=== PATIENT | male | born 1965 | race African-American/Black ===

== ENCOUNTER 2016-09-05 11:18 | Inpatient (IN) | payer OTHER ==
[2016-09-05 15:09] VITALS: BMI 34.9
--- NOTE | 2016-09-05 17:50 | HP ---
CIWA Score - CIWA Score Nausea/Vomitin-Mild Nausea/No Vomiting Muscle Tremors: 4-Moderate,w/Arms Extend Anxiety: 4-Mod. Anxious/Guarded Agitation: 4-Moderately Restless Paroxysmal Sweats: 1-Minimal Palms Moist Orientation: 0-Oriented Tacttile Disturbances: 0-None Auditory Disturbances: 0-None Visual Disturbances: 0-None Headache: 1-Very Mild CIWA-Ar Total Score: 15 Admission ROS BHS - HPI Chief Complaint: withdrawal sx Allergies/Adverse Reactions: Allergies Allergy/AdvReac Type Severity Reaction Status Date / Time No Known Drug Allergies Allergy Verified 09/05/16 17:58 cheese AdvReac Intermediate Vomiting Verified 09/05/16 17:58 lactose AdvReac Intermediate Vomiting Verified 09/05/16 17:58 History of Present Illness: 51 years old male with long history of alcohol marijuana nicotine dependence, has hypertension hyperlipidemia gerd and depression is admitted to detox Exam Limitations: No Limitations - Ebola screening Have you traveled outside of the country in the last 21 days: No Have you had contact with anyone from an Ebola affected area: No Have you been sick,other than usual withdrawal symptoms: No Do you have a fever: No - Review of Systems Constitutional: Chills, Changes in sleep, Weight Stable EENT: reports: No Symptoms Reported Respiratory: reports: No Symptoms reported Cardiac: reports: No Symptoms Reported : reports: No Symptoms Reported Musculoskeletal: reports: Back Pain, Joint Pain (right leg), Muscle Pain, Neck Pain Integumentary: reports: No Symptoms Reported Neuro: reports: Tremors Endocrine: reports: No Symptoms Reported Hematology: reports: No Symptoms Reported Psychiatric: reports: Judgement Intact, Orientated x3, Depressed Other Systems: Reviewed and Negative Patient History - Patient Medical History Hx Anemia: No Hx Asthma: No Hx Chronic Obstructive Pulmonary Disease (COPD): No Hx Cancer: No Hx Cardiac Disorders: No Hx Congestive Heart Failure: No Hx Hypertension: Yes Hx Hypercholesterolemia: Yes Hx Pacemaker: No HX Cerebrovascular Accident: No Hx Seizures: No Hx Dementia: No Hx Diabetes: No Hx Gastrointestinal Disorders: No Hx Liver Disease: No Hx Genitourinary Disorders: No Hx Sexually Transmitted Disorders: No Hx Renal Disease (ESRD): No Hx Thyroid Disease: No Hx Human Immunodeficiency Virus (HIV): No Hx Hepatitis C: No Hx Depression: Yes Hx Suicide Attempt: No Hx Bipolar Disorder: No Hx Schizophrenia: No - Patient Surgical History Past Surgical History: No Hx Neurologic Surgery: No Hx Cataract Extraction: No Hx Cardiac Surgery: No Hx Lung Surgery: No Hx Breast Surgery: No Hx Breast Biopsy: No Hx Abdominal Surgery: No Hx Appendectomy: No Hx Cholecystectomy: No Hx Genitourinary Surgery: No Hx Orthopedic Surgery: No - PPD History Previous Implant?: Yes Documented Results: Negative w/o proof Implanted On Prior [facility] Admission?: No PPD to be Administered?: Yes - Smoking Cessation Smoking history: Current every day smoker Have you smoked in the past 12 months: Yes Aproximately how many cigarettes per day: 10 Cigars Per Day: 0 Hx Chewing Tobacco Use: No Initiated information on smoking cessation: Yes 'Breaking Loose' booklet given: 09/05/16 - Substance & Tx. History Hx Alcohol Use: Yes Hx Substance Use: Yes Substance Use Type: Alcohol, Marijuana Hx Substance Use Treatment: Yes - Substances Abused Alcohol Route: Oral Frequency: Daily Amount used: LIQUOR- 3 PINTS, BEER- 1 SIX PACK Age of first use: 15 Date of Last Use: 09/05/16 Cocaine Route: Inhalation Frequency: Daily Amount used: 3 BAGS Age of first use: 19 Date of Last Use: 09/02/16 Marijuana/Hashish Route: Smoking Frequency: Daily Amount used: 6 BLUNTS Age of first use: 12 Date of Last Use: 09/04/16 Family Disease History - Family Disease History Family Disease History: [place]: Mother (), Respiratory: Brother, Other: Father () Admission Physical Exam BHS - Vital Signs Vital Signs: Vital Signs - 24 hr 09/05/16 15:08 Temperature 97.6 F Pulse Rate 94 H Respiratory 20 Rate Blood Pressure 139/88 - Physical General Appearance: Yes: Appropriately Dressed, Mild Distress, Obese, Tremorous , Irritable, Sweating, Anxious HEENTM: Yes: Hearing grossly Normal, Normal ENT Inspection, Normocephalic, Normal Voice Respiratory: Yes: Chest Non-Tender, Lungs Clear, Normal Breath Sounds, No Respiratory Distress, No Accessory Muscle Use Neck: Yes: Supple, Trachea in good position Breast: Yes: Breasts Symetrical Cardiology: Yes: Regular Rhythm, S1, S2, Tachycardia Abdominal: Yes: Non Tender, Soft Genitourinary: Yes: Within Normal Limits Back: Yes: Normal Inspection Musculoskeletal: Yes: full range of Motion, Gait Steady, Back pain, Muscle Pain (RIGHT LEG) Extremities: Yes: Normal Inspection, Normal Range of Motion, Non-Tender, Tremors Neurological: Yes: Fully Oriented, Alert, Motor Strength 5/5, Normal Response, Depressed Affect Integumentary: Yes: Warm Lymphatic: Yes: Within Normal Limits Cleared for Admission [facility] - Detox or Rehab [facility] Level of Care: Medically Managed Detox Regimen/Protocol: Librium [facility] Breath Alcohol Content Breath Alcohol Content: 0 Urine Drug Screen - Results Drug Screen Negative: No Urine Drug Screen Results: THC-Marijuana
[2016-09-05] MEDS ORDERED: chlordiazePOXIDE HCL 25 MG CAPSULE PO PRN (17:52)
[2016-09-05] MEDS ORDERED: MENTHOL/PHENOL 1 EACH UD MM PRN (17:52)
[2016-09-05] MEDS ORDERED: guaiFENesin/D-METHORPHAN HB 10 ML UNIT-DOSE CUPS PO PRN (17:52)
[2016-09-05] MEDS ORDERED: MAGNESIUM CITRATE 300 ML BOTTLE PO PRN (17:52)
[2016-09-05] MEDS ORDERED: P-EPHED 60MG/TRIPROLIDI 2.5MG TABLET PO PRN (17:52)
[2016-09-05] MEDS ORDERED: LOPERAMIDE HCL 2 MG CAPSULE PO PRN (17:52)
[2016-09-05] MEDS ORDERED: MAG HYDROX/AL HYDROX/SIMETH 30 ML UNIT-DOSE CUP PO PRN (17:52)
[2016-09-05] MEDS ORDERED: MAGNESIUM HYDROX 2400MG/30ML ORAL SUSPENSION 30 ML CUP PO PRN (17:52)
[2016-09-05] MEDS ORDERED: hydrOXYzine PAMOATE 50 MG CAPSULE (FP) PO PRN (17:52)
[2016-09-05] MEDS ORDERED: NAPROXEN 500 MG TABLET (FP) PO PRN (17:56)
[2016-09-05] MEDS ORDERED: NIFEdipine E.R. 30 MG TABLET (FP) PO SCH (22:00)
[2016-09-05] MEDS: THIAMINE HCL 100 MG TABLET (FP) PO SCH (22:15)
[2016-09-05] MEDS: NIFEdipine E.R. 30 MG TABLET (FP) PO SCH (22:15)
[2016-09-05] MEDS: ATORVASTATIN CA 10 MG TABLET (FP) PO SCH (22:15)
[2016-09-05] MEDS: chlordiazePOXIDE HCL 25 MG CAPSULE PO SCH (22:15)
[2016-09-05] MEDS: RANITIDINE HCL 150 MG TABLET (FP) PO SCH (22:15)
[2016-09-05] MEDS: diphenhydrAMINE HCL 50 MG CAPSULE PO PRN (22:16)
[2016-09-05] MEDS: cloNIDine HCL 0.1 MG TABLET PO PRN (22:16)
[2016-09-05 23:51] LABS: URINE APPEARANCE CLEAR; URINE BILIRUBIN NEGATIVE (NEGATIVE); URINE BLOOD NEGATIVE (NEGATIVE); URINE COLOR YELLOW; URINE GLUCOSE (UA) NEGATIVE (NEGATIVE); URINE KETONE NEGATIVE (NEGATIVE); URINE LEUK ESTERASE NEGATIVE (NEGATIVE); URINE NITRITE NEGATIVE (NEGATIVE); URINE PROTEIN NEGATIVE (NEGATIVE); URINE UROBILINOGEN NEGATIVE E.U./dl (0.2-1.0)
[2016-09-06] MEDS: chlordiazePOXIDE HCL 25 MG CAPSULE PO SCH ×4 (06:08→22:07)
[2016-09-06 10:08] LABS: MCH 30.6 pg (25.7-33.7); MCHC 33.5 g/dl (32.0-35.9); MEAN CELL VOLUME 91.5 fl (80-96); PLATELET COUNT 190 K/MM3 (134-434); RDW 13.9 % (11.9-15.9); WHITE BLOOD COUNT 7.3 K/mm3 (4.0-10.0)
[2016-09-06] MEDS: NICOTINE 14 MG/24 HOURS TOPICAL PATCH TD SCH (10:18)
[2016-09-06] MEDS: RANITIDINE HCL 150 MG TABLET (FP) PO SCH ×2 (10:18→22:07)
[2016-09-06] MEDS: ASPIRIN 81 MG CHEWABLE TABLETS PO SCH (10:18)
[2016-09-06] MEDS: PRENATAL VITAMINS W/ FOLIC ACID TABLET (FP) PO SCH (10:18)
[2016-09-06] MEDS: NICOTINE POLACRILEX 2 MG GUM BC PRN ×2 (10:18→18:01)
[2016-09-06 10:26] LABS: ALBUMIN 3.8 g/dl (3.4-5.0); BILIRUBIN,TOTAL 0.1 mg/dL (0.2-1.0); CALCIUM 8.7 mg/dL (8.5-10.1); COCKROFT - GAULT 110.02; CREATININE 1.3 mg/dL (0.7-1.3); TOT PROT 7.3 g/dl (6.4-8.2)
--- NOTE | 2016-09-06 12:20 | EKG ---
Test Reason : Blood Pressure : / mmHG Vent. Rate : 081 BPM Atrial Rate : 081 BPM P-R Int : 162 ms QRS Dur : 108 ms QT Int : 372 ms P-R-T Axes : 059 041 048 degrees QTc Int : 432 ms NORMAL SINUS RHYTHM NONSPECIFIC T WAVE ABNORMALITY ABNORMAL ECG NO PREVIOUS ECGS AVAILABLE Confirmed by MD JOHN, ALFREDA ([id number]) on 09/06/2016 12:20:01 PM Referred By: Confirmed By:ALFREDA LOPEZ MD
[2016-09-06] MEDS: cloNIDine HCL 0.1 MG TABLET PO PRN (13:18)
--- NOTE | 2016-09-06 17:16 | CONSULT ---
[facility] Psychiatric Consult - Data Date of interview: 09/06/16 Admission source: [facility] Identifying data: First admission to [facility] for this 51 y/o AA male seeking detox treatment for alcohol,marijuana (K2),cocaine and nicotine dependence.Patient is single (common-law),a father of one,domiciled,unemployed and supported on Public Assistance. Substance Abuse History: - Smoking Cessation. Smoking history: Current every day smoker. Have you smoked in the past 12 months: Yes. Aproximately how many cigarettes per day: 10. Cigars Per Day: 0. Hx Chewing Tobacco Use: No. Initiated information on smoking cessation: Yes. 'Breaking Loose' booklet given : 09/05/16. - Substance & Tx. History. Hx Alcohol Use: Yes. Hx Substance Use : Yes. Substance Use Type: Alcohol, Marijuana. Hx Substance Use Treatment: Yes. - Substances Abused. Alcohol. Route: Oral. Frequency: Daily. Amount used: LIQUOR- 3 PINTS, BEER- 1 SIX PACK. Age of first use: 15. Date of Last Use: 09/05/16. Cocaine. Route: Inhalation. Frequency: Daily. Amount used: 3 BAGS. Age of first use: 19. Date of Last Use: 09/02/16. Marijuana/ Hashish. Route: Smoking. Frequency: Daily. Amount used: 6 BLUNTS. Age of first use: 12. Date of Last Use: 09/04/16. Confirmed by patient. Medical History: Obesity,GERD,hypertension,hypercholesterolemia,lower back pain and dyslipidemia. Psychiatric History: Patient admits to two psychiatric hospitalizations.Known to [facility].Diagnosed with MDD and Bipolar Disorder.Mr Sorto sees a psychiatrist at [facility].He indicates that he is not on psychotropic medications.Denies history of suicide attempts. Physical/Sexual Abuse/Trauma History: Patient denies. Additional Comment: Urine Drug Screen Results: THC-Marijuana.Noted. Mental Status Exam - Mental Status Exam Alert and Oriented to: Time, Place, Person Cognitive Function: Good Patient Appearance: Well Groomed (obese;noted evidence of a nevus on right side of face) Mood: Hopeful Affect: Appropriate, Normal Range Patient Behavior: Fatigued, Appropriate, Cooperative Speech Pattern: Clear, Appropriate Voice Loudness: Normal Thought Process: Goal Oriented Thought Disorder: Not Present Hallucinations: Denies Suicidal Ideation: Denies Homicidal Ideation: Denies Insight/Judgement: Poor Sleep: Well Appetite: Good Muscle strength/Tone: Normal Gait/Station: Normal Psychiatric Findings - Problem List ([place] 1, 2,3) (1) Alcohol dependence with uncomplicated withdrawal Current Visit: Yes Status: Acute (2) Cannabis dependence, uncomplicated Current Visit: Yes Status: Acute (3) Nicotine dependence Current Visit: Yes Status: Acute (4) Substance induced mood disorder Current Visit: Yes Status: Acute (5) Accelerated hypertension Current Visit: Yes Status: Chronic (6) GERD (gastroesophageal reflux disease) Current Visit: Yes Status: Chronic (7) Hyperlipidemia Current Visit: Yes Status: Chronic - Initial Treatment Plan Initial Treatment Plan: Psychoeducation.Detoxification.Observation.Noted scripts for topiramate,olanzapine,trazodone in section of pharmacy claims as recently as 08/04 and 09/03.Presented to the patient." I don't want to get back on these things ." Mr Sorto refused psychotropic medications other than detox agents.
[2016-09-06] MEDS: ACETAMINOPHEN 325 MG TABLET (FP) PO PRN (18:00)
--- NOTE | 2016-09-06 18:23 | PN ---
[facility] CIWA - CIWA Score Nausea/Vomitin-No Nausea/No Vomiting Muscle Tremors: 3 Anxiety: 2 Agitation: 3 Paroxysmal Sweats: 3 Orientation: 0-Oriented Tacttile Disturbances: 3-Moderate Itch/Numb/Burn Auditory Disturbances: 2-Mild Harshness/Frighten Visual Disturbances: 0-None Headache: 0-None Present CIWA-Ar Total Score: 16 BHS Progress Note (SOAP) Subjective: Body Aches, Sweating, H/A, Tremors. Objective: PT. A & O X 3, OBSERVED AMBULATING ON UNIT. PT. DENIES CHEST PAIN. 09/06/16 18:20 Vital Signs Temperature 97.2 F L 09/06/16 13:07 Pulse Rate 92 H 09/06/16 13:07 Respiratory Rate 20 09/06/16 13:07 Blood Pressure 153/96 09/06/16 13:07 O2 Sat by Pulse Oximetry (%) Laboratory Tests 09/05/16 09/06/16 09/06/16 23:40 06:00 06:00 WBC 7.3 RBC 4.27 Hgb 13.1 Hct 39.1 MCV 91.5 MCHC 33.5 RDW 13.9 Plt Count 190 MPV 10.0 Sodium 143 Potassium 4.1 Chloride 107 Carbon Dioxide 27 Anion Gap 9 BUN 20 H Creatinine 1.3 Creat Clearance w eGFR 57.97 Random Glucose 106 Calcium 8.7 Total Bilirubin 0.1 L AST 23 ALT 34 Alkaline Phosphatase 92 Total Protein 7.3 Albumin 3.8 Urine Color Yellow Urine Appearance Clear Urine pH 5.0 Ur Specific [place] 1.025 Urine Protein Negative Urine Glucose (UA) Negative Urine Ketones Negative Urine Blood Negative Urine Nitrite Negative Urine Bilirubin Negative Urine Urobilinogen Negative Ur Leukocyte Esterase Negative RPR Titer 09/06/16 06:00 WBC RBC Hgb Hct MCV MCHC RDW Plt Count MPV Sodium Potassium Chloride Carbon Dioxide Anion Gap BUN Creatinine Creat Clearance w eGFR Random Glucose Calcium Total Bilirubin AST ALT Alkaline Phosphatase Total Protein Albumin Urine Color Urine Appearance Urine pH Ur Specific [place] Urine Protein Urine Glucose (UA) Urine Ketones Urine Blood Urine Nitrite Urine Bilirubin Urine Urobilinogen Ur Leukocyte Esterase RPR Titer Nonreactive LABS NOTED. 09/06/16 18:22 09/06/16 18:22 Assessment: 09/06/16 18:20 WITHDRAWAL SYMPTOMS. Plan: CONTINUE DETOX. CONTINUE TO MONITOR BP.
[2016-09-06] MEDS: THIAMINE HCL 100 MG TABLET (FP) PO SCH (22:06)
[2016-09-06] MEDS: ATORVASTATIN CA 10 MG TABLET (FP) PO SCH (22:07)
[2016-09-06] MEDS: NIFEdipine E.R. 30 MG TABLET (FP) PO SCH (22:07)
[2016-09-06] MEDS: diphenhydrAMINE HCL 50 MG CAPSULE PO PRN (22:07)
[2016-09-07] MEDS: chlordiazePOXIDE HCL 25 MG CAPSULE PO SCH ×3 (05:51→17:27)
[2016-09-07] MEDS: RANITIDINE HCL 150 MG TABLET (FP) PO SCH ×2 (10:15→22:42)
[2016-09-07] MEDS: ASPIRIN 81 MG CHEWABLE TABLETS PO SCH (10:15)
[2016-09-07] MEDS: PRENATAL VITAMINS W/ FOLIC ACID TABLET (FP) PO SCH (10:15)
[2016-09-07] MEDS: cloNIDine HCL 0.1 MG TABLET PO PRN ×2 (10:16→22:42)
[2016-09-07] MEDS: NICOTINE POLACRILEX 2 MG GUM BC PRN ×2 (10:16→17:29)
[2016-09-07] MEDS: NICOTINE 14 MG/24 HOURS TOPICAL PATCH TD SCH (10:16)
[2016-09-07] MEDS ORDERED: cloNIDine HCL 0.1 MG TABLET PO ONE (15:13)
--- NOTE | 2016-09-07 16:21 | PN ---
S CIWA - CIWA Score Nausea/Vomitin Muscle Tremors: 4-Moderate,w/Arms Extend Anxiety: 4-Mod. Anxious/Guarded Agitation: 4-Moderately Restless Paroxysmal Sweats: No Perspiration Orientation: 0-Oriented Tacttile Disturbances: 1-Very Mild Itch/Numbness Auditory Disturbances: 0-None Visual Disturbances: 0-None Headache: 2-Mild CIWA-Ar Total Score: 18 BHS Progress Note (SOAP) Subjective: Anxious, sweating, tremor, headache, interrupted sleep Objective: 09/07/16 16:20 Last Vital Signs Temp Pulse Resp BP Pulse Ox 97.3 F L 54 L 18 163/100 09/07/16 13:41 09/07/16 15:05 09/07/16 13:41 09/07/16 15:05 Laboratory Tests 09/05/16 09/06/16 09/06/16 23:40 06:00 06:00 WBC 7.3 RBC 4.27 Hgb 13.1 Hct 39.1 MCV 91.5 MCHC 33.5 RDW 13.9 Plt Count 190 MPV 10.0 Sodium 143 Potassium 4.1 Chloride 107 Carbon Dioxide 27 Anion Gap 9 BUN 20 H Creatinine 1.3 Creat Clearance w eGFR 57.97 Random Glucose 106 Calcium 8.7 Total Bilirubin 0.1 L AST 23 ALT 34 Alkaline Phosphatase 92 Total Protein 7.3 Albumin 3.8 Urine Color Yellow Urine Appearance Clear Urine pH 5.0 Ur Specific [place] 1.025 Urine Protein Negative Urine Glucose (UA) Negative Urine Ketones Negative Urine Blood Negative Urine Nitrite Negative Urine Bilirubin Negative Urine Urobilinogen Negative Ur Leukocyte Esterase Negative RPR Titer 09/06/16 06:00 WBC RBC Hgb Hct MCV MCHC RDW Plt Count MPV Sodium Potassium Chloride Carbon Dioxide Anion Gap BUN Creatinine Creat Clearance w eGFR Random Glucose Calcium Total Bilirubin AST ALT Alkaline Phosphatase Total Protein Albumin Urine Color Urine Appearance Urine pH Ur Specific [place] Urine Protein Urine Glucose (UA) Urine Ketones Urine Blood Urine Nitrite Urine Bilirubin Urine Urobilinogen Ur Leukocyte Esterase RPR Titer Nonreactive Labs noted Assessment: 09/07/16 16:20 Withdrawal symptoms Plan: Continue detox
[2016-09-07] MEDS: ATORVASTATIN CA 10 MG TABLET (FP) PO SCH (22:42)
[2016-09-07] MEDS: THIAMINE HCL 100 MG TABLET (FP) PO SCH (22:42)
[2016-09-07] MEDS: chlordiazePOXIDE 5 MG CAPSULE PO SCH (22:43)
[2016-09-07] MEDS: NIFEdipine E.R. 30 MG TABLET (FP) PO SCH (22:43)
[2016-09-08] MEDS: chlordiazePOXIDE 5 MG CAPSULE PO SCH ×3 (05:55→17:24)
[2016-09-08] MEDS: cloNIDine HCL 0.1 MG TABLET PO PRN (05:55)
[2016-09-08] MEDS: RANITIDINE HCL 150 MG TABLET (FP) PO SCH ×2 (10:08→22:01)
[2016-09-08] MEDS: ASPIRIN 81 MG CHEWABLE TABLETS PO SCH (10:08)
[2016-09-08] MEDS: PRENATAL VITAMINS W/ FOLIC ACID TABLET (FP) PO SCH (10:08)
[2016-09-08] MEDS: NICOTINE 14 MG/24 HOURS TOPICAL PATCH TD SCH (10:09)
--- NOTE | 2016-09-08 12:04 | PN ---
BHS Progress Note (SOAP) Subjective: Lower Back Ache, Sweating, H/A, Body Aches. Objective: PT. A & O X 3, OBSERVED AMBULATING ON UNIT. PT. DENIES CHEST PAIN AND DIZZINESS. 09/08/16 12:01 Vital Signs Temperature 97.7 F 09/08/16 09:51 Pulse Rate 101 H 09/08/16 09:51 Respiratory Rate 20 09/08/16 09:51 Blood Pressure 130/89 09/08/16 09:51 O2 Sat by Pulse Oximetry (%) Laboratory Tests 09/05/16 09/06/16 09/06/16 23:40 06:00 06:00 WBC 7.3 RBC 4.27 Hgb 13.1 Hct 39.1 MCV 91.5 MCHC 33.5 RDW 13.9 Plt Count 190 MPV 10.0 Sodium 143 Potassium 4.1 Chloride 107 Carbon Dioxide 27 Anion Gap 9 BUN 20 H Creatinine 1.3 Creat Clearance w eGFR 57.97 Random Glucose 106 Calcium 8.7 Total Bilirubin 0.1 L AST 23 ALT 34 Alkaline Phosphatase 92 Total Protein 7.3 Albumin 3.8 Urine Color Yellow Urine Appearance Clear Urine pH 5.0 Ur Specific [place] 1.025 Urine Protein Negative Urine Glucose (UA) Negative Urine Ketones Negative Urine Blood Negative Urine Nitrite Negative Urine Bilirubin Negative Urine Urobilinogen Negative Ur Leukocyte Esterase Negative RPR Titer 09/06/16 06:00 WBC RBC Hgb Hct MCV MCHC RDW Plt Count MPV Sodium Potassium Chloride Carbon Dioxide Anion Gap BUN Creatinine Creat Clearance w eGFR Random Glucose Calcium Total Bilirubin AST ALT Alkaline Phosphatase Total Protein Albumin Urine Color Urine Appearance Urine pH Ur Specific [place] Urine Protein Urine Glucose (UA) Urine Ketones Urine Blood Urine Nitrite Urine Bilirubin Urine Urobilinogen Ur Leukocyte Esterase RPR Titer Nonreactive LABS NOTED. Assessment: 09/08/16 12:02 WITHDRAWAL SYMPTOMS. Plan: CONTINUE DETOX. ADVISED PATIENT TO FOLLOW-UP WITH [facility] [employer] [facility]IE[facility] AFTER DISCHARGE FROM DETOX FOR GENERAL MEDICAL ASSESSMENT AND FOR HISTORY OF HYPERTENSION.
[2016-09-08] MEDS: ACETAMINOPHEN 325 MG TABLET (FP) PO PRN (17:43)
[2016-09-08] MEDS: chlordiazePOXIDE HCL 10 MG CAPSULE PO SCH (22:01)
[2016-09-08] MEDS: ATORVASTATIN CA 10 MG TABLET (FP) PO SCH (22:02)
[2016-09-08] MEDS: NIFEdipine E.R. 30 MG TABLET (FP) PO SCH (22:02)
[2016-09-08] MEDS: THIAMINE HCL 100 MG TABLET (FP) PO SCH (22:02)
[2016-09-08] MEDS: diphenhydrAMINE HCL 50 MG CAPSULE PO PRN (22:03)
[2016-09-08] MEDS: NICOTINE POLACRILEX 2 MG GUM BC PRN (22:05)
[2016-09-09] MEDS: cloNIDine HCL 0.1 MG TABLET PO PRN (06:05)
[2016-09-09] MEDS: chlordiazePOXIDE HCL 10 MG CAPSULE PO SCH ×2 (06:05→10:56)
[2016-09-09] MEDS: ACETAMINOPHEN 325 MG TABLET (FP) PO PRN (06:06)
[2016-09-09] MEDS: NICOTINE 14 MG/24 HOURS TOPICAL PATCH TD SCH (10:56)
[2016-09-09] MEDS: PRENATAL VITAMINS W/ FOLIC ACID TABLET (FP) PO SCH (10:56)
[2016-09-09] MEDS: ASPIRIN 81 MG CHEWABLE TABLETS PO SCH (10:56)
[2016-09-09] MEDS: RANITIDINE HCL 150 MG TABLET (FP) PO SCH (10:56)
--- NOTE | 2016-09-09 11:48 | DS ---
[facility] Detox Discharge Summary Admission Date: 09/05/16 Discharge Date: 09/09/16 - History Present History: Alcohol Dependence, Cannabis Dependence Pertinent Past History: HTN GERD - Physical Exam Results Vital Signs: Vital Signs Temperature 98.5 F 09/09/16 09:53 Pulse Rate 112 H 09/09/16 09:53 Respiratory Rate 19 09/09/16 09:53 Blood Pressure 143/96 09/09/16 09:53 O2 Sat by Pulse Oximetry (%) Pertinent Admission Physical Exam Findings: Withdrawal sx. Laboratory Last Values WBC 7.3 K/mm3 (4.0-10.0) 09/06/16 06:00 RBC 4.27 M/mm3 (4.00-5.60) 09/06/16 06:00 Hgb 13.1 GM/dL (11.7-16.9) 09/06/16 06:00 Hct 39.1 % (35.4-49) 09/06/16 06:00 MCV 91.5 fl (80-96) 09/06/16 06:00 MCHC 33.5 g/dl (32.0-35.9) 09/06/16 06:00 RDW 13.9 % (11.9-15.9) 09/06/16 06:00 Plt Count 190 K/MM3 (134-434) 09/06/16 06:00 MPV 10.0 fl (7.5-11.1) 09/06/16 06:00 Sodium 143 mmol/L (136-145) 09/06/16 06:00 Potassium 4.1 mmol/L (3.5-5.1) 09/06/16 06:00 Chloride 107 mmol/L (98-107) 09/06/16 06:00 Carbon Dioxide 27 mmol/L (21-32) 09/06/16 06:00 Anion Gap 9 (8-16) 09/06/16 06:00 BUN 20 mg/dL (7-18) H 09/06/16 06:00 Creatinine 1.3 mg/dL (0.7-1.3) 09/06/16 06:00 Creat Clearance w eGFR 57.97 (>60) 09/06/16 06:00 Random Glucose 106 mg/dL (74-106) 09/06/16 06:00 Calcium 8.7 mg/dL (8.5-10.1) 09/06/16 06:00 Total Bilirubin 0.1 mg/dL (0.2-1.0) L 09/06/16 06:00 AST 23 U/L (15-37) 09/06/16 06:00 ALT 34 U/L (12-78) 09/06/16 06:00 Alkaline Phosphatase 92 U/L (45-117) 09/06/16 06:00 Total Protein 7.3 g/dl (6.4-8.2) 09/06/16 06:00 Albumin 3.8 g/dl (3.4-5.0) 09/06/16 06:00 Urine Color Yellow 09/05/16 23:40 Urine Appearance Clear 09/05/16 23:40 Urine pH 5.0 (5.0-8.0) 09/05/16 23:40 Ur Specific [place] 1.025 (1.005-1.025) 09/05/16 23:40 Urine Protein Negative (NEGATIVE) 09/05/16 23:40 Urine Glucose (UA) Negative (NEGATIVE) 09/05/16 23:40 Urine Ketones Negative (NEGATIVE) 09/05/16 23:40 Urine Blood Negative (NEGATIVE) 09/05/16 23:40 Urine Nitrite Negative (NEGATIVE) 09/05/16 23:40 Urine Bilirubin Negative (NEGATIVE) 09/05/16 23:40 Urine Urobilinogen Negative E.U./dl (0.2-1.0) 09/05/16 23:40 Ur Leukocyte Esterase Negative (NEGATIVE) 09/05/16 23:40 RPR Titer Nonreactive (NONREACTIVE) 09/06/16 06:00 labs noted - Treatment Hospital Course: Detox Protocol Followed, Detoxed Safely, Responded well, Discharged Condition Good, Rehab Referral Accepted Patient has Accepted a Rehab Referral to: [facility] - Medication Discharge Medications: Ambulatory Orders Aspirin [ASA -] 81 mg PO DAILY 09/05/16 Nifedipine [Procardia Capsule -] 30 mg PO HS 09/05/16 Simvastatin [Zocor -] 5 mg PO HS 09/05/16 - Diagnosis (1) Alcohol dependence with uncomplicated withdrawal Current Visit: Yes Status: Acute (2) Cannabis dependence, uncomplicated Current Visit: Yes Status: Acute (3) Nicotine dependence Current Visit: Yes Status: Acute Qualifiers: Nicotine product type: cigarettes Substance use status: uncomplicated Qualified Code(s): F17.210 - Nicotine dependence, cigarettes, uncomplicated (4) Substance induced mood disorder Current Visit: Yes Status: Acute (5) GERD (gastroesophageal reflux disease) Current Visit: Yes Status: Chronic (6) Hyperlipidemia Current Visit: Yes Status: Chronic (7) HTN (hypertension) Current Visit: Yes Status: Acute Qualifiers: Hypertension type: essential hypertension Qualified Code(s): I10 - Essential (primary) hypertension - AMA Did Patient Leave Against Medical Advice: No
[2016-09-09 13:30] VITALS: BP 138/86; PULSE 98; TEMP 97.2
== END 2016-09-09 15:22 | disposition other institution (70) | DRG 775 ==
LOC: YASAS 11:18 → Y3N 17:37
PROVIDERS: ADMIT Internal Medicine; ATTEND Internal Medicine
PROC: HZ2ZZZZ Detoxification Services for Substance Abuse Treatment (ICD-10-PCS; principal; 2016-09-05)
DX: F10.230 Alcohol dependence with withdrawal, uncomplicated (principal); F12.20 Cannabis dependence, uncomplicated; F17.210 Nicotine dependence, cigarettes, uncomplicated; F19.24 Other psychoactive substance dependence with psychoactive substance-induced mood disorder; K21.9 Gastro-esophageal reflux disease without esophagitis; E78.5 Hyperlipidemia, unspecified; I10 Essential (primary) hypertension; Z68.35 Body mass index [BMI] 35.0-35.9, adult; R00.0 Tachycardia, unspecified
CPT/HCPCS: 36415; 80053; 81003; 85027; 86593; 93005; 93010

== ENCOUNTER 2016-09-09 15:29 | Inpatient (IN) | payer OTHER ==
[2016-09-09] MEDS ORDERED: P-EPHED 60MG/TRIPROLIDI 2.5MG TABLET PO PRN (17:04)
[2016-09-09] MEDS ORDERED: MAGNESIUM HYDROX 2400MG/30ML ORAL SUSPENSION 30 ML CUP PO PRN (17:04)
[2016-09-09] MEDS ORDERED: MAGNESIUM CITRATE 300 ML BOTTLE PO PRN (17:04)
[2016-09-09] MEDS ORDERED: diphenhydrAMINE HCL 50 MG CAPSULE PO PRN (17:04)
[2016-09-09] MEDS ORDERED: LOPERAMIDE HCL 2 MG CAPSULE PO PRN (17:04)
[2016-09-09] MEDS ORDERED: MAG HYDROX/AL HYDROX/SIMETH 30 ML UNIT-DOSE CUP PO PRN (17:04)
[2016-09-09] MEDS ORDERED: MENTHOL/PHENOL 1 EACH UD MM PRN (17:04)
[2016-09-09] MEDS ORDERED: guaiFENesin/D-METHORPHAN HB 10 ML UNIT-DOSE CUPS PO PRN (17:04)
[2016-09-09] MEDS ORDERED: IBUPROFEN 400 MG TABLET (FP) PO PRN (17:04)
--- NOTE | 2016-09-09 17:04 | HP ---
[facility] Rehab Assess/Revision - Admission History Admitted to Rehab from: [facility] Date of Admission to Rehab: 09/09/16 - Vital signs Vital Signs: Vital Signs Period Temp Pulse Resp BP Sys/Barboza Pulse Ox Last 24 Hr 97.4 F 97 20 152/105 - Findings Detox History & Physical reviewed: Yes Concur with findings: Yes Comments/Additional Findings: transferred from detox to rehab admission as per protocol
[2016-09-09] MEDS: NIFEdipine E.R. 30 MG TABLET (FP) PO SCH (17:53)
[2016-09-09] MEDS: NICOTINE POLACRILEX 2 MG GUM BUC PRN (17:54)
[2016-09-09] MEDS: THIAMINE HCL 100 MG TABLET (FP) PO SCH (23:12)
--- NOTE | 2016-09-10 07:55 | HP ---
Psychiatrist Admission - Data Date of interview: 09/10/16 Admission source: [facility] Identifying data: This is the first [facility] admission for this 51 years old Black male in a common-law relationship, father of a 17 years old son , unemployed on public assistance, domiciled living with Medical History: Significant for HTN, Hyperlipidemia, GERD, Back pain and Obesity. Smokes 10 cigarettes daily Psychiatric History: Reports that his psychiaric exposure began in childhood. Claims he was told that he was hyperactive and for that reason he was admitted to [facility] for a year and was also at [facility]. 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 More recently, in April 2016, he was admitted to [facility] due to suicidal attempt by trying to jump off the building. Reports that he was not working at the time and his did not have anything to do with him. He stayed at [facility] for almost 2 weeks and treated with medication. Following discharge, he was referred to [facility] for aftercare. He told automobile and property underwriter that he sees a psychiatrist there and he is prescribed medication which he has not been taking and does want to take while here. He does not even know the name of the medication. At present, reports doing and sleeping well. Pharmacy search shows he filled Rx for Zyprexa 10 mg/day on 06/26/16, Topiramate 50 mg on 08/21/16 & Trazadone 50 mg on 08/25/16 Physical/Sexual Abuse/Trauma History: Denies emotional, physical or sexual abuse as well as DV relationship Additional Comment: Reports history of multiple arrests including 2 felony conviction. Denies being on parole/prbation at present Vital Signs: Vital Signs - 24 hr 09/09/16 09/09/16 09/09/16 15:43 17:17 20:15 Temperature 97.4 F L Pulse Rate 97 H 96 H 102 H Respiratory 20 Rate Blood Pressure 152/105 159/96 145/82 09/10/16 09/10/16 00:30 03:30 Temperature Pulse Rate Respiratory 20 20 Rate Blood Pressure Allergies/Adverse Reactions: Allergies Allergy/AdvReac Type Severity Reaction Status Date / Time No Known Drug Allergies Allergy Verified 09/09/16 19:19 cheese AdvReac Intermediate Vomiting Verified 09/09/16 19:19 lactose AdvReac Intermediate Vomiting Verified 09/09/16 19:19 Date of last physical exam: 09/05/16 Concur with the findings of this exam: Yes - Substance Abuse/Tx History Hx Alcohol Use: Yes Hx Substance Use: Yes Substance Use Type: Alcohol (Started drinking alcohol at age 15, consumes 4-5 pints of liquor daily. Last drink on 09/05/16), Cocaine (Started using cocaine at age 19, consumes $50-100 worth daily. Last used on 09/02/16), Marijuana ( Started smoking marijuana at age 12, consumes $50 worth daily. Last Somked on ) Hx Substance Use Treatment: Yes (recent inpt detox @ [facility]) - Admission Criteria Previous failed treatment: Yes Poor recovery environment: Yes Comorbidities: Yes Lacks judgement: Yes Mental Status Exam - Mental Status Exam Alert and Oriented to: Time, Place, Person Cognitive Function: Fair Patient Appearance: Well Groomed Mood: Hopeful, Euthymic Patient Behavior: Cooperative Speech Pattern: Clear Voice Loudness: Normal Thought Process: Intact, Goal Oriented Thought Disorder: Not Present Hallucinations: Denies Suicidal Ideation: Denies Homicidal Ideation: Denies Insight/Judgement: Fair Sleep: Fair Appetite: Good Muscle strength/Tone: Normal Gait/Station: Normal Psychiatric Findings - Problem List ([place] 1, 2,3) (1) Alcohol dependence with uncomplicated withdrawal Current Visit: No Status: Acute (2) Cocaine dependence Current Visit: Yes Status: Acute (3) Cannabis dependence, uncomplicated Current Visit: No Status: Acute (4) Nicotine dependence Current Visit: No Status: Acute Qualifiers: Nicotine product type: cigarettes Substance use status: uncomplicated Qualified Code(s): F17.210 - Nicotine dependence, cigarettes, uncomplicated (5) Depressive disorder Current Visit: Yes Status: Acute (6) Substance induced mood disorder Current Visit: No Status: Ruled-out (7) HTN (hypertension) Current Visit: No Status: Acute Qualifiers: Hypertension type: essential hypertension Qualified Code(s): I10 - Essential (primary) hypertension (8) Hyperlipidemia Current Visit: No Status: Chronic - Initial Treatment Plan Initial Treatment Plan: Monitor progress
[2016-09-10] MEDS: PRENATAL VITAMINS W/ FOLIC ACID TABLET (FP) PO SCH (10:40)
[2016-09-10] MEDS: NIFEdipine E.R. 30 MG TABLET (FP) PO SCH (10:40)
[2016-09-10] MEDS: ACETAMINOPHEN 325 MG TABLET (FP) PO PRN (10:41)
[2016-09-10] MEDS: ASPIRIN 81 MG CHEWABLE TABLETS PO SCH (10:41)
[2016-09-10 11:54] LABS: HIV 1 & 2 AB NEGATIVE; HIV 1 AGp24 NEGATIVE
[2016-09-10] MEDS: THIAMINE HCL 100 MG TABLET (FP) PO SCH (22:45)
[2016-09-11] MEDS: NICOTINE POLACRILEX 2 MG GUM BUC PRN (06:59)
[2016-09-11] MEDS: ASPIRIN 81 MG CHEWABLE TABLETS PO SCH (10:08)
[2016-09-11] MEDS: NICOTINE 14 MG/24 HOURS TOPICAL PATCH TD PRN (10:08)
[2016-09-11] MEDS: NIFEdipine E.R. 30 MG TABLET (FP) PO SCH (10:08)
[2016-09-11] MEDS: PRENATAL VITAMINS W/ FOLIC ACID TABLET (FP) PO SCH (10:08)
[2016-09-11] MEDS: ACETAMINOPHEN 325 MG TABLET (FP) PO PRN (12:04)
[2016-09-11] MEDS: THIAMINE HCL 100 MG TABLET (FP) PO SCH (21:52)
[2016-09-12] MEDS: ASPIRIN 81 MG CHEWABLE TABLETS PO SCH (11:07)
[2016-09-12] MEDS: HYDROCHLOROTHIAZIDE 25 MG TABLET (FP) PO SCH (11:08)
[2016-09-12] MEDS: NIFEdipine E.R. 30 MG TABLET (FP) PO SCH (11:08)
[2016-09-12] MEDS: PRENATAL VITAMINS W/ FOLIC ACID TABLET (FP) PO SCH (11:08)
[2016-09-12] MEDS: NICOTINE 14 MG/24 HOURS TOPICAL PATCH TD PRN (11:09)
[2016-09-12] MEDS: THIAMINE HCL 100 MG TABLET (FP) PO SCH (22:28)
[2016-09-13] MEDS: ACETAMINOPHEN 325 MG TABLET (FP) PO PRN (08:41)
[2016-09-13] MEDS: PRENATAL VITAMINS W/ FOLIC ACID TABLET (FP) PO SCH (09:49)
[2016-09-13] MEDS: ASPIRIN 81 MG CHEWABLE TABLETS PO SCH (09:49)
[2016-09-13] MEDS: NICOTINE 14 MG/24 HOURS TOPICAL PATCH TD PRN (09:50)
[2016-09-13] MEDS: NIFEdipine E.R. 30 MG TABLET (FP) PO SCH (09:50)
[2016-09-13] MEDS: HYDROCHLOROTHIAZIDE 25 MG TABLET (FP) PO SCH (09:50)
[2016-09-13] MEDS: THIAMINE HCL 100 MG TABLET (FP) PO SCH (21:41)
[2016-09-14] MEDS: NICOTINE POLACRILEX 2 MG GUM BUC PRN ×2 (06:22→17:02)
[2016-09-14] MEDS: ASPIRIN 81 MG CHEWABLE TABLETS PO SCH (10:00)
[2016-09-14] MEDS: PRENATAL VITAMINS W/ FOLIC ACID TABLET (FP) PO SCH (10:00)
[2016-09-14] MEDS: HYDROCHLOROTHIAZIDE 25 MG TABLET (FP) PO SCH (10:01)
[2016-09-14] MEDS: NIFEdipine E.R. 30 MG TABLET (FP) PO SCH (10:01)
[2016-09-14] MEDS: NICOTINE 14 MG/24 HOURS TOPICAL PATCH TD PRN (10:01)
[2016-09-14] MEDS: THIAMINE HCL 100 MG TABLET (FP) PO SCH (22:22)
[2016-09-15] MEDS: ASPIRIN 81 MG CHEWABLE TABLETS PO SCH (10:12)
[2016-09-15] MEDS: NIFEdipine E.R. 30 MG TABLET (FP) PO SCH (10:12)
[2016-09-15] MEDS: HYDROCHLOROTHIAZIDE 25 MG TABLET (FP) PO SCH (10:12)
[2016-09-15] MEDS: PRENATAL VITAMINS W/ FOLIC ACID TABLET (FP) PO SCH (10:12)
[2016-09-15] MEDS: NICOTINE POLACRILEX 2 MG GUM BUC PRN (10:13)
[2016-09-15] MEDS: NICOTINE 14 MG/24 HOURS TOPICAL PATCH TD PRN (10:13)
[2016-09-15] MEDS: THIAMINE HCL 100 MG TABLET (FP) PO SCH (21:33)
[2016-09-16] MEDS: PRENATAL VITAMINS W/ FOLIC ACID TABLET (FP) PO SCH (10:11)
[2016-09-16] MEDS: HYDROCHLOROTHIAZIDE 25 MG TABLET (FP) PO SCH (10:11)
[2016-09-16] MEDS: NIFEdipine E.R. 30 MG TABLET (FP) PO SCH (10:11)
[2016-09-16] MEDS: ASPIRIN 81 MG CHEWABLE TABLETS PO SCH (10:11)
[2016-09-16] MEDS: NICOTINE 14 MG/24 HOURS TOPICAL PATCH TD PRN (10:12)
[2016-09-16] MEDS: NICOTINE POLACRILEX 2 MG GUM BUC PRN (10:13)
[2016-09-16] MEDS: THIAMINE HCL 100 MG TABLET (FP) PO SCH (22:50)
[2016-09-17] MEDS: ASPIRIN 81 MG CHEWABLE TABLETS PO SCH (10:06)
[2016-09-17] MEDS: NIFEdipine E.R. 30 MG TABLET (FP) PO SCH (10:06)
[2016-09-17] MEDS: HYDROCHLOROTHIAZIDE 25 MG TABLET (FP) PO SCH (10:06)
[2016-09-17] MEDS: PRENATAL VITAMINS W/ FOLIC ACID TABLET (FP) PO SCH (10:06)
[2016-09-17] MEDS: NICOTINE 14 MG/24 HOURS TOPICAL PATCH TD PRN (10:07)
[2016-09-17] MEDS: NICOTINE POLACRILEX 2 MG GUM BUC PRN (10:07)
[2016-09-17] MEDS: THIAMINE HCL 100 MG TABLET (FP) PO SCH (21:32)
[2016-09-18] MEDS: ASPIRIN 81 MG CHEWABLE TABLETS PO SCH (09:46)
[2016-09-18] MEDS: NIFEdipine E.R. 30 MG TABLET (FP) PO SCH (09:46)
[2016-09-18] MEDS: HYDROCHLOROTHIAZIDE 25 MG TABLET (FP) PO SCH (09:46)
[2016-09-18] MEDS: PRENATAL VITAMINS W/ FOLIC ACID TABLET (FP) PO SCH (09:47)
[2016-09-18] MEDS: NICOTINE 14 MG/24 HOURS TOPICAL PATCH TD PRN (09:47)
[2016-09-18] MEDS: CYCLOBENZAPRINE HCL 10 MG TABLET (FP) PO PRN (09:49)
[2016-09-18] MEDS: NICOTINE POLACRILEX 2 MG GUM BUC PRN (09:49)
[2016-09-18] MEDS: THIAMINE HCL 100 MG TABLET (FP) PO SCH (21:37)
[2016-09-19] MEDS: HYDROCHLOROTHIAZIDE 25 MG TABLET (FP) PO SCH (09:59)
[2016-09-19] MEDS: ASPIRIN 81 MG CHEWABLE TABLETS PO SCH (09:59)
[2016-09-19] MEDS: PRENATAL VITAMINS W/ FOLIC ACID TABLET (FP) PO SCH (09:59)
[2016-09-19] MEDS: NICOTINE 14 MG/24 HOURS TOPICAL PATCH TD PRN (09:59)
[2016-09-19] MEDS: NIFEdipine E.R. 30 MG TABLET (FP) PO SCH (09:59)
[2016-09-19] MEDS: NICOTINE POLACRILEX 2 MG GUM BUC PRN (10:01)
[2016-09-19] MEDS: THIAMINE HCL 100 MG TABLET (FP) PO SCH (22:02)
[2016-09-20] MEDS: NIFEdipine E.R. 30 MG TABLET (FP) PO SCH (10:06)
[2016-09-20] MEDS: HYDROCHLOROTHIAZIDE 25 MG TABLET (FP) PO SCH (10:06)
[2016-09-20] MEDS: ASPIRIN 81 MG CHEWABLE TABLETS PO SCH (10:06)
[2016-09-20] MEDS: PRENATAL VITAMINS W/ FOLIC ACID TABLET (FP) PO SCH (10:06)
[2016-09-20] MEDS: NICOTINE 14 MG/24 HOURS TOPICAL PATCH TD PRN (10:07)
[2016-09-20] MEDS: NICOTINE POLACRILEX 2 MG GUM BUC PRN (10:07)
[2016-09-20] MEDS: THIAMINE HCL 100 MG TABLET (FP) PO SCH (22:46)
[2016-09-21] MEDS: ASPIRIN 81 MG CHEWABLE TABLETS PO SCH (10:11)
[2016-09-21] MEDS: PRENATAL VITAMINS W/ FOLIC ACID TABLET (FP) PO SCH (10:12)
[2016-09-21] MEDS: NIFEdipine E.R. 30 MG TABLET (FP) PO SCH (10:12)
[2016-09-21] MEDS: NICOTINE 14 MG/24 HOURS TOPICAL PATCH TD PRN (10:12)
[2016-09-21] MEDS: HYDROCHLOROTHIAZIDE 25 MG TABLET (FP) PO SCH (10:12)
[2016-09-21] MEDS: THIAMINE HCL 100 MG TABLET (FP) PO SCH (22:28)
[2016-09-21] MEDS: ACETAMINOPHEN 325 MG TABLET (FP) PO PRN (22:40)
[2016-09-21] MEDS: CYCLOBENZAPRINE HCL 10 MG TABLET (FP) PO PRN (22:40)
[2016-09-22] MEDS: PRENATAL VITAMINS W/ FOLIC ACID TABLET (FP) PO SCH (10:03)
[2016-09-22] MEDS: NIFEdipine E.R. 30 MG TABLET (FP) PO SCH (10:03)
[2016-09-22] MEDS: HYDROCHLOROTHIAZIDE 25 MG TABLET (FP) PO SCH (10:03)
[2016-09-22] MEDS: ASPIRIN 81 MG CHEWABLE TABLETS PO SCH (10:03)
[2016-09-22] MEDS: NICOTINE 14 MG/24 HOURS TOPICAL PATCH TD PRN (10:04)
[2016-09-22] MEDS: NICOTINE POLACRILEX 2 MG GUM BUC PRN (10:06)
[2016-09-22] MEDS: THIAMINE HCL 100 MG TABLET (FP) PO SCH (21:47)
--- NOTE | 2016-09-23 09:04 | PN ---
Psychiatric Progress Note Vital Signs: Vital Signs Period Temp Pulse Resp BP Sys/Barboza Pulse Ox Last 24 Hr 98.1 F 79-89 18-20 136-146/81-82 Date of Session: 09/23/16 Chief Complaint:: Discharge Note HPI: Patient addressing Alcohol, Cocaine and Cannabis Dependence comorbid with nicotine Dependence and Depressive Disorder ROS: HTN, Hyperlipidemia were medically managed Current Medications: Active Medications Generic Name Dose Route Start Last Admin Trade Name Freq PRN Reason Stop Dose Admin Acetaminophen 650 mg 09/09/16 17:04 09/21/16 22:40 Tylenol - PO 650 mg Q4H PRN Administration FEVER OR PAIN Al Hydroxide/Mg Hydroxide 30 ml 09/09/16 17:04 Mylanta Oral Suspension - PO Q6H PRN DYSPEPSIA Aspirin 81 mg 09/10/16 10:00 09/22/16 10:03 Asa - PO 81 mg DAILY AZRA Administration Cyclobenzaprine HCl 10 mg 09/11/16 14:42 09/21/16 22:40 Flexeril - PO 10 mg TID PRN Administration MUSCLE SPASMS Diphenhydramine HCl 50 mg 09/09/16 17:04 Benadryl - PO HSMR1 PRN FOR ITCHING Eucalyptus/Menthol/Phenol/Sorbitol 1 each 09/09/16 17:04 Cepastat Lozenge - MM Q4H PRN SORE THROAT Guaifenesin 10 ml 09/09/16 17:04 Robitussin Dm - PO Q6H PRN COUGH Hydrochlorothiazide 25 mg 09/12/16 10:00 09/22/16 10:03 Hctz - PO 25 mg DAILY AZRA Administration Loperamide HCl 4 mg 09/09/16 17:04 Imodium - PO Q6H PRN DIARRHEA Magnesium Hydroxide 30 ml 09/09/16 17:04 Milk Of Magnesia - PO DAILY PRN CONSTIPATION Nicotine 14 mg 09/09/16 17:45 09/22/16 10:04 Nicoderm Patch - TD 14 mg DAILY PRN Administration WITHDRAWAL(CONT SUBST) Nicotine Polacrilex 2 mg 09/09/16 17:45 09/22/16 10:06 Nicorette Gum - BUC 2 mg Q2H PRN Administration NICOTINE REPLACEMENT RX Nifedipine 30 mg 09/09/16 17:45 09/22/16 10:03 Procardia Xl - PO 30 mg DAILY AZRA Administration Multivit/Folic Acid/Iron 1 tab 09/10/16 10:00 09/22/16 10:03 Vitamins (Sjr) - PO 1 tab DAILY AZRA Administration Pseudoephedrine/Triprolidine 1 combo 09/09/16 17:04 Actifed - PO TID PRN NASAL CONGESTION Thiamine HCl 100 mg 09/09/16 22:00 09/22/16 21:47 Vitamin B1 - PO Not Given HS AZRA Current Side Effect: No Lab tests ordered: Yes Lab tests reviewed: Yes Provider note:: Patient will complete this program on 08/24/16. He has met his treatment goals and will continue to address his issues in outpatient treatment at [facility]. He is stable for discharge on 09/24/16 Total face to face time:: 35 Mental Status Exam - Mental Status Exam Alert and Oriented to: Time, Person Cognitive Function: Fair Patient Appearance: Well Groomed Mood: Hopeful, Euthymic Affect: Appropriate Patient Behavior: Cooperative Speech Pattern: Clear Voice Loudness: Normal Thought Process: Intact Thought Disorder: Not Present Hallucinations: Denies Suicidal Ideation: Denies Insight/Judgement: Fair Sleep: Fair Appetite: Good Muscle strength/Tone: Normal Gait/Station: Normal Psychiatric Treatment Plan - Problem List (1) Alcohol dependence with uncomplicated withdrawal Current Visit: No (2) Cocaine dependence Current Visit: Yes (3) Cannabis dependence, uncomplicated Current Visit: No (4) Nicotine dependence Current Visit: No Qualifiers: Nicotine product type: cigarettes Substance use status: uncomplicated Qualified Code(s): F17.210 - Nicotine dependence, cigarettes, uncomplicated (5) Depressive disorder Current Visit: Yes (6) Substance induced mood disorder Current Visit: No (7) HTN (hypertension) Current Visit: No Qualifiers: Hypertension type: essential hypertension Qualified Code(s): I10 - Essential (primary) hypertension (8) Hyperlipidemia Current Visit: No Initial treatment plan: Patient will be discharged tomorrow and referred to [facility] for outpatient treatment
[2016-09-23] MEDS: ASPIRIN 81 MG CHEWABLE TABLETS PO SCH (10:08)
[2016-09-23] MEDS: HYDROCHLOROTHIAZIDE 25 MG TABLET (FP) PO SCH (10:08)
[2016-09-23] MEDS: NIFEdipine E.R. 30 MG TABLET (FP) PO SCH (10:08)
[2016-09-23] MEDS: PRENATAL VITAMINS W/ FOLIC ACID TABLET (FP) PO SCH (10:08)
[2016-09-23] MEDS: NICOTINE 14 MG/24 HOURS TOPICAL PATCH TD PRN (10:09)
[2016-09-23] MEDS: NICOTINE POLACRILEX 2 MG GUM BUC PRN (10:09)
[2016-09-23] MEDS: ACETAMINOPHEN 325 MG TABLET (FP) PO PRN (21:26)
[2016-09-23] MEDS: CYCLOBENZAPRINE HCL 10 MG TABLET (FP) PO PRN (21:26)
[2016-09-23] MEDS: THIAMINE HCL 100 MG TABLET (FP) PO SCH (22:20)
[2016-09-24 06:52] VITALS: BP 143/93; PULSE 91; TEMP 97.8
[2016-09-24] MEDS: HYDROCHLOROTHIAZIDE 25 MG TABLET (FP) PO SCH (08:59)
[2016-09-24] MEDS: PRENATAL VITAMINS W/ FOLIC ACID TABLET (FP) PO SCH (09:00)
[2016-09-24] MEDS: ASPIRIN 81 MG CHEWABLE TABLETS PO SCH (09:00)
[2016-09-24] MEDS: NIFEdipine E.R. 30 MG TABLET (FP) PO SCH (09:00)
[2016-09-24] MEDS: NICOTINE 14 MG/24 HOURS TOPICAL PATCH TD PRN (09:01)
[2016-09-24] MEDS: NICOTINE POLACRILEX 2 MG GUM BUC PRN (09:02)
== END 2016-09-24 09:45 | disposition home or self-care (01) | DRG 772 ==
LOC: YASAS 15:29 → Y3W 15:30
PROVIDERS: ADMIT Psychiatry & Neurology Psychiatry; ATTEND Psychiatry & Neurology Psychiatry
PROC: HZ42ZZZ Group Counseling for Substance Abuse Treatment, Cognitive-Behavioral (ICD-10-PCS; principal; 2016-09-24)
DX: F10.230 Alcohol dependence with withdrawal, uncomplicated (principal); F14.20 Cocaine dependence, uncomplicated; F12.20 Cannabis dependence, uncomplicated; F17.210 Nicotine dependence, cigarettes, uncomplicated; F39 Unspecified mood [affective] disorder; F19.24 Other psychoactive substance dependence with psychoactive substance-induced mood disorder; I10 Essential (primary) hypertension; E78.5 Hyperlipidemia, unspecified
CPT/HCPCS: 36415; 87389

== ENCOUNTER 2020-03-28 10:38 | Inpatient (IN) | payer OTHER ==
[2020-03-28 11:21] VITALS: BMI 30.2
[2020-03-28] MEDS ORDERED: ACETAMINOPHEN 325 MG TABLET (FP) PO PRN ×2 (17:24)
[2020-03-28] MEDS ORDERED: ONDANSETRON *ODT* 4 MG TABLET SL PRN (17:24)
[2020-03-28] MEDS ORDERED: NICOTINE POLACRILEX 2 MG GUM BUC PRN (17:24)
[2020-03-28] MEDS ORDERED: MAGNESIUM HYDROX 2400MG/30ML ORAL SUSPENSION 30 ML CUP PO PRN (17:24)
[2020-03-28] MEDS ORDERED: MAG HYDROX/AL HYDROX/SIMETH 30 ML UNIT-DOSE CUP PO PRN (17:24)
[2020-03-28] MEDS ORDERED: BISMUTH SUBSALICYLATE 524 MG/30 ML UD PO PRN (17:24)
[2020-03-28] MEDS ORDERED: diazePAM 5 MG TABLET PO PRN (17:24)
[2020-03-28] MEDS ORDERED: MENTHOL/PHENOL 1 EACH UD MM PRN (17:24)
[2020-03-28] MEDS ORDERED: MAGNESIUM CITRATE 300 ML BOTTLE PO PRN (17:24)
[2020-03-28] MEDS: NICOTINE 7 MG/24 HOURS TOPICAL PATCH TD SCH (18:27)
[2020-03-28] MEDS: hydrOXYzine PAMOATE 25 MG CAPSULE (FP) PO SCH ×2 (18:27→22:33)
[2020-03-28] MEDS: diazePAM 5 MG TABLET PO SCH ×2 (18:27→22:33)
[2020-03-28] MEDS: PRENATAL VITAMINS W/ FOLIC ACID TABLET (FP) PO SCH (18:27)
[2020-03-28] MEDS: THIAMINE HCL 100 MG TABLET (FP) PO SCH (22:33)
[2020-03-28] MEDS: MELATONIN 5 MG TABLETS PO SCH (22:33)
[2020-03-29] MEDS: diazePAM 5 MG TABLET PO SCH ×4 (06:12→22:08)
[2020-03-29] MEDS: cloNIDine HCL 0.1 MG TABLET PO PRN ×2 (06:13→22:07)
[2020-03-29] MEDS: hydrOXYzine PAMOATE 25 MG CAPSULE (FP) PO SCH ×5 (06:13→22:08)
[2020-03-29] MEDS: METHOCARBAMOL 500 MG TABLET PO PRN (09:16)
[2020-03-29] MEDS ORDERED: cloNIDine HCL 0.1 MG TABLET PO ONE (09:17)
[2020-03-29] MEDS: NIFEdipine E.R. 30 MG TABLET PO SCH (10:21)
[2020-03-29] MEDS: NICOTINE 7 MG/24 HOURS TOPICAL PATCH TD SCH (10:22)
[2020-03-29] MEDS: PRENATAL VITAMINS W/ FOLIC ACID TABLET (FP) PO SCH (10:22)
[2020-03-29 11:37] LABS: POTASSIUM 3.8 mmol/L (3.5-5.1)
[2020-03-29 11:38] LABS: HEMATOCRIT 40.3 % (35.4-49); HEMOGLOBIN 13.2 GM/dL (11.7-16.9); MCHC 32.8 g/dl (32.0-35.9); MEAN CELL VOLUME 94.4 fl (80-96); MEAN PLT VOLUME 10.7 fl (7.5-11.1); PLATELET COUNT 192 K/MM3 (134-434); RBC 4.26 M/mm3 (4.00-5.60); RDW 13.2 % (11.9-15.9); WHITE BLOOD COUNT 7.3 K/mm3 (4.0-10.0)
[2020-03-29 11:39] LABS: ALBUMIN 3.4 g/dl (3.4-5.0); CALCIUM 8.6 mg/dL (8.5-10.1)
[2020-03-29 11:44] LABS: BILIRUBIN,TOTAL 0.8 mg/dL (0.2-1); TOT PROT 6.6 g/dl (6.4-8.2)
[2020-03-29 12:34] LABS: HIV INTERPRETATION NEGATIVE (NEGATIVE)
[2020-03-29] MEDS: amLODIPine BESYLATE 5 MG TABLET (FP) PO SCH (13:05)
[2020-03-29] MEDS: THIAMINE HCL 100 MG TABLET (FP) PO SCH (22:07)
[2020-03-29] MEDS: MELATONIN 5 MG TABLETS PO SCH (22:08)
[2020-03-30] MEDS: diazePAM 5 MG TABLET PO SCH ×3 (06:23→22:45)
[2020-03-30] MEDS: hydrOXYzine PAMOATE 25 MG CAPSULE (FP) PO SCH ×5 (06:23→22:45)
[2020-03-30] MEDS: NIFEdipine E.R. 30 MG TABLET PO SCH (10:40)
[2020-03-30] MEDS: amLODIPine BESYLATE 5 MG TABLET (FP) PO SCH (10:40)
[2020-03-30] MEDS: NICOTINE 7 MG/24 HOURS TOPICAL PATCH TD SCH (10:40)
[2020-03-30] MEDS: PRENATAL VITAMINS W/ FOLIC ACID TABLET (FP) PO SCH (10:40)
[2020-03-30] MEDS: IBUPROFEN 400 MG TABLET (FP) PO PRN (17:01)
[2020-03-30] MEDS: MELATONIN 5 MG TABLETS PO SCH (22:44)
[2020-03-30] MEDS: THIAMINE HCL 100 MG TABLET (FP) PO SCH (22:46)
[2020-03-31] MEDS: hydrOXYzine PAMOATE 25 MG CAPSULE (FP) PO SCH ×5 (06:04→22:11)
[2020-03-31] MEDS: diazePAM 5 MG TABLET PO SCH ×2 (06:04→17:25)
[2020-03-31] MEDS: cloNIDine HCL 0.1 MG TABLET PO PRN ×2 (06:05→22:11)
[2020-03-31] MEDS: PRENATAL VITAMINS W/ FOLIC ACID TABLET (FP) PO SCH (10:13)
[2020-03-31] MEDS: NIFEdipine E.R. 30 MG TABLET PO SCH (10:13)
[2020-03-31] MEDS: amLODIPine BESYLATE 5 MG TABLET (FP) PO SCH (10:13)
[2020-03-31] MEDS: IBUPROFEN 400 MG TABLET (FP) PO PRN (10:15)
[2020-03-31] MEDS: METHOCARBAMOL 500 MG TABLET PO PRN ×2 (10:15→22:12)
[2020-03-31] MEDS ORDERED: MASKS NR ONE (10:16)
[2020-03-31] MEDS: NICOTINE 7 MG/24 HOURS TOPICAL PATCH TD SCH (10:17)
[2020-03-31] MEDS: MELATONIN 5 MG TABLETS PO SCH (22:11)
[2020-03-31] MEDS: THIAMINE HCL 100 MG TABLET (FP) PO SCH (22:11)
[2020-04-01] MEDS ORDERED: diazePAM 5 MG TABLET PO ONE (06:00)
[2020-04-01 06:07] VITALS: BP 129/86; PULSE 91; TEMP 98.3
[2020-04-01] MEDS: hydrOXYzine PAMOATE 25 MG CAPSULE (FP) PO SCH (07:13)
[2020-04-01] MEDS: cloNIDine HCL 0.1 MG TABLET PO PRN (07:16)
[2020-04-01] MEDS: IBUPROFEN 400 MG TABLET (FP) PO PRN (09:18)
== END 2020-04-01 09:36 | disposition home or self-care (01) | DRG 774 ==
LOC: YASAS 10:38 → Y3N 16:54
PROVIDERS: ADMIT Allergy & Immunology; ATTEND Allergy & Immunology
PROC: HZ2ZZZZ Detoxification Services for Substance Abuse Treatment (ICD-10-PCS; principal; 2020-03-28)
DX: F10.230 Alcohol dependence with withdrawal, uncomplicated (principal); F14.20 Cocaine dependence, uncomplicated; F12.20 Cannabis dependence, uncomplicated; F17.213 Nicotine dependence, cigarettes, with withdrawal; F19.24 Other psychoactive substance dependence with psychoactive substance-induced mood disorder; F32.9 Major depressive disorder, single episode, unspecified; I10 Essential (primary) hypertension; K21.9 Gastro-esophageal reflux disease without esophagitis; S09.90XA Unspecified injury of head, initial encounter; S00.83XA Contusion of other part of head, initial encounter; W18.30XA Fall on same level, unspecified, initial encounter; Y93.9 Activity, unspecified; Y92.9 Unspecified place or not applicable; Z91.011 Allergy to milk products
CPT/HCPCS: 36415; 80053; 85027; 86593; 86780; 87389; J0735

== ENCOUNTER 2020-03-28 11:39 | Emergency (ER) | payer OTHER ==
[2020-03-28 12:23] VITALS: BP 154/95; PULSE 92; TEMP 98.9; BMI 29.8
[2020-03-28 12:35] LABS: BASO % 0.6 % (0-2.0); EOS % 1.4 % (0-4.5); HEMATOCRIT 38.8 % (35.4-49); HEMOGLOBIN 12.9 GM/dL (11.7-16.9); LYMPH % 14.7 % (8-40); MCHC 33.3 g/dl (32.0-35.9); MEAN CELL VOLUME 93.2 fl (80-96); MEAN PLT VOLUME 9.9 fl (7.5-11.1); MONO % 5.7 % (3.8-10.2); NEUT % 77.6 % (42.8-82.8); PLATELET COUNT 190 K/MM3 (134-434); RBC 4.16 M/mm3 (4.00-5.60); RDW 13.2 % (11.9-15.9)
[2020-03-28 12:50] LABS: POTASSIUM 3.3 mmol/L (3.5-5.1)
[2020-03-28 12:52] LABS: CALCIUM 8.8 mg/dL (8.5-10.1)
[2020-03-28 12:53] LABS: ACTIVATED PTT 35.1 SECONDS (25.2-36.5); INR 1.13 (0.83-1.09); PROTHROMBIN TIME (PATIENT) 13.8 SEC (9.7-13.0)
[2020-03-28 12:53] LABS: ALBUMIN 3.5 g/dl (3.4-5.0)
[2020-03-28 12:55] LABS: CREATININE 1.2 mg/dL (0.55-1.3)
[2020-03-28 12:57] LABS: BILIRUBIN,TOTAL 0.6 mg/dL (0.2-1); TOT PROT 6.4 g/dl (6.4-8.2)
[2020-03-28] MEDS ORDERED: IBUPROFEN 600 MG TABLET (FP) PO ONE ×2 (13:35→13:51)
[2020-03-28] MEDS ORDERED: POTASSIUM CHLORIDE TABS 20 MEQ TABLET.ER (FP) PO ONE ×2 (13:35→13:51)
[2020-03-28] MEDS ORDERED: DIPHTH,PERTUSS(ACELL),TET 0.5 ML DISP.SYRIN IM ONE ×2 (13:46→13:52)
[2020-03-28] MEDS ORDERED: FLUORESCEIN NA 1 EA STRIP ONE (13:59)
== END 2020-03-28 14:40 | disposition home or self-care (01) ==
LOC: JER 11:39
PROC: 3E0234Z Introduction of Serum, Toxoid and Vaccine into Muscle, Percutaneous Approach (ICD-10-PCS; principal; 2020-03-28)
DX: S09.90XA Unspecified injury of head, initial encounter (principal); S00.83XA Contusion of other part of head, initial encounter; F10.10 Alcohol abuse, uncomplicated
CPT/HCPCS: 36415; 70450-TC; 72125-TC; 80053; 85025; 85610; 85730; 90715; 99285-25; C9803; U0003

== ENCOUNTER 2024-06-14 17:58 | Inpatient (IN) | payer OTHER ==
[2024-06-14 19:03] VITALS: BMI 29.7
[2024-06-14] MEDS ORDERED: BISMUTH SUBSALICYLATE 524 MG/30 ML PO PRN (19:54)
[2024-06-14] MEDS ORDERED: MAGNESIUM HYDROX 2400MG/30ML ORAL SUSPENSION 30 ML CUP PO PRN (19:54)
[2024-06-14] MEDS ORDERED: NICOTINE POLACRILEX 2 MG GUM BUC PRN (19:54)
[2024-06-14] MEDS ORDERED: BENZOCAINE/MENTHOL (CHLORASEPTIC ) LOZENGE MM PRN (19:54)
[2024-06-14] MEDS ORDERED: BENZONATATE 200 MG CAPSULE PO PRN (19:54)
[2024-06-14] MEDS ORDERED: ACETAMINOPHEN 325 MG TABLET (FP) PO PRN (19:54)
[2024-06-14] MEDS ORDERED: IBUPROFEN 600 MG TABLET (FP) PO PRN (19:54)
[2024-06-14] MEDS ORDERED: DICYCLOMINE HCL 10 MG CAPSULE PO PRN (19:54)
[2024-06-14] MEDS ORDERED: NALOXONE (NARCAN) HCL 4 MG/0.1 ML SPRAY NS PRN (19:54)
[2024-06-14] MEDS ORDERED: LOPERAMIDE HCL 2 MG CAPSULE PO PRN (19:54)
[2024-06-14] MEDS ORDERED: guaiFENesin 600 MG TABLET.ER (FP) PO PRN (19:54)
[2024-06-14] MEDS ORDERED: NICOTINE POLACRILEX 2 MG LOZENGE BC PRN (19:54)
[2024-06-14] MEDS ORDERED: MAG HYDROX/AL HYDROX/SIMETH 30 ML UNIT-DOSE CUP PO PRN (19:54)
[2024-06-14] MEDS ORDERED: IBUPROFEN 400 MG TABLET (FP) PO PRN (19:54)
[2024-06-14] MEDS ORDERED: POLYETHYLENE GLYCOL (HEALTHYLAX) 3350 17 GM PACKET PO PRN (19:54)
[2024-06-14] MEDS ORDERED: ONDANSETRON *ODT* 4 MG TABLET SL PRN (19:54)
[2024-06-14] MEDS ORDERED: MELATONIN 5 MG TABLETS ONE (22:39)
[2024-06-14] MEDS: THIAMINE 100 MG TABLET PO SCH (23:03)
[2024-06-14] MEDS: MELATONIN 5 MG TABLETS PO SCH (23:03)
[2024-06-15] MEDS: amLODIPine BESYLATE 5 MG TABLET (FP) PO SCH (09:49)
[2024-06-15] MEDS: PRENATAL VITAMINS W/ FOLIC ACID TABLET (FP) PO SCH (09:49)
[2024-06-15] MEDS: ALBUTEROL SO4 HFA INHALER IH PRN (16:58)
[2024-06-15] MEDS: amLODIPine BESYLATE 5 MG TABLET (FP) PO ONE (16:59)
[2024-06-16 06:11] VITALS: PULSE 90
[2024-06-16] MEDS: cloNIDine HCL 0.1 MG TABLET PO ONE (07:41)
[2024-06-16 09:00] VITALS: BP 156/100; RESP 16; TEMP 97.6
[2024-06-16] MEDS: ASPIRIN 81 MG CHEWABLE TABLETS PO SCH (09:25)
[2024-06-16] MEDS: amLODIPine BESYLATE 10 MG TABLET (FP) PO SCH (09:25)
[2024-06-16] MEDS: NIFEdipine E.R. 30 MG TABLET PO SCH (09:25)
== END 2024-06-16 11:03 | disposition short-term general hospital (02) | DRG 774 ==
LOC: YASAS 17:58 → UNDOADMIN 21:13 → Y3N 21:13
PROVIDERS: ADMIT Allergy & Immunology; ATTEND Allergy & Immunology
PROC: HZ2ZZZZ Detoxification Services for Substance Abuse Treatment (ICD-10-PCS; principal; 2024-06-14)
DX: F10.20 Alcohol dependence, uncomplicated (principal); F14.20 Cocaine dependence, uncomplicated; F12.20 Cannabis dependence, uncomplicated; F17.210 Nicotine dependence, cigarettes, uncomplicated; E78.2 Mixed hyperlipidemia; I10 Essential (primary) hypertension; J45.909 Unspecified asthma, uncomplicated; K21.9 Gastro-esophageal reflux disease without esophagitis; M54.50 Low back pain, unspecified; G89.29 Other chronic pain; R06.89 Other abnormalities of breathing
CPT/HCPCS: 80305; 93005; 93010

== ENCOUNTER 2024-06-16 11:31 | Inpatient (IN) | payer OTHER ==
[2024-06-16] MEDS ORDERED: ALBUTEROL SO4 2.5/IPRATROPIUM 0.5 INH SOL 3 ML VIAL.NEB. NEB ONE ×2 (12:18→14:12)
[2024-06-16] MEDS: ALBUTEROL SO4 2.5/IPRATROPIUM 0.5 INH SOL 3 ML VIAL.NEB. NEB ONE (12:38)
[2024-06-16 13:13] LABS: VENOUS BASE EXCESS -3.4 mmol/L (-2-2); VENOUS O2 SATURATION 83.2 % (70-80); VENOUS PCO2 38.8 mmHg (38-52); VENOUS PH 7.363 (7.310-7.410)
[2024-06-16 13:16] LABS: BASO % 0.8 % (0-2.0); HEMATOCRIT 40.1 % (35.4-49); LYMPH % 17.1 % (8-40); MCH 29.5 pg (25.7-33.7); MCHC 32.5 g/dl (32.0-35.9); MEAN CELL VOLUME 90.8 fl (80-96); MEAN PLT VOLUME 7.8 fl (7.5-11.1); MONO % 6.3 % (3.8-10.2); NEUT % 71.8 % (42.8-82.8); PLATELET COUNT 228 10^3/uL (134-434); RBC 4.42 M/mm3 (4.00-5.60); RDW 15.4 % (11.9-15.9); WHITE BLOOD COUNT 6.2 K/mm3 (4.0-10.0)
[2024-06-16 13:23] LABS: INR 1.13 (0.83-1.09); PROTHROMBIN TIME (PATIENT) 12.3 SEC (9.7-13.0)
[2024-06-16 13:26] LABS: ACTIVATED PTT 34.7 SECONDS (25.2-36.5)
[2024-06-16 13:30] LABS: CHLORIDE 107 mmol/L (98-107); SODIUM 136 mmol/L (136-145)
[2024-06-16 13:32] LABS: CALCIUM 8.6 mg/dL (8.5-10.1)
[2024-06-16 13:33] LABS: ALBUMIN 3.2 g/dl (3.4-5.0); BLOOD UREA NITROGEN 20.3 mg/dL (7-18); CO2 23 mmol/L (21-32); GLUCOSE,RANDOM 104 mg/dL (74-106); MAGNESIUM 2.2 mg/dL (1.8-2.4)
[2024-06-16 13:35] LABS: ANION GAP 6 mmol/L (4-13); POTASSIUM 6.2 mmol/L (3.5-5.1)
[2024-06-16 13:36] LABS: SGOT/AST 38 U/L (15-37); SGPT/ALT 20 U/L (13-61)
[2024-06-16 13:37] LABS: BILIRUBIN,TOTAL 0.6 mg/dL (0.2-1)
[2024-06-16 13:38] LABS: TOT PROT 7.5 g/dl (6.4-8.2)
[2024-06-16 13:39] LABS: ALK PHOS 88 U/L (45-117)
[2024-06-16 13:41] LABS: N-TERMINAL BNP 7876.7 pg/ml (5-125)
[2024-06-16] MEDS: ALBUTEROL SO4 2.5/IPRATROPIUM 0.5 INH SOL 3 ML VIAL.NEB. NEB SCH (14:20)
[2024-06-16 15:18] LABS: CALCIUM 8.6 mg/dL (8.5-10.1); POTASSIUM 4.4 mmol/L (3.5-5.1)
[2024-06-16 15:20] LABS: BLOOD UREA NITROGEN 20.1 mg/dL (7-18)
[2024-06-16 15:24] LABS: CREATININE 1.2 mg/dL (0.55-1.3)
[2024-06-16] MEDS ORDERED: FUROSEMIDE 40 MG/4 ML INJECTABLE VIAL ONE (16:17)
[2024-06-16] MEDS: FUROSEMIDE 40 MG/4 ML INJECTABLE VIAL IVPUSH ONE (16:21)
[2024-06-16] MEDS ORDERED: ALBUTEROL SO4 2.5/IPRATROPIUM 0.5 INH SOL 3 ML VIAL.NEB. NEB PRN (17:23)
[2024-06-16] MEDS ORDERED: ATORVASTATIN CA 40 MG TABLET (FP) ONE (21:50)
[2024-06-16] MEDS ORDERED: SACUBITRIL/VALSARTAN 24 MG-26 MG TABLET ONE (21:50)
[2024-06-16] MEDS ORDERED: CARVEDILOL 25 MG TABLET (FP) ONE (21:50)
[2024-06-16] MEDS ORDERED: MELATONIN 5 MG TABLETS ONE (21:50)
[2024-06-16] MEDS: SACUBITRIL/VALSARTAN 24 MG-26 MG TABLET PO SCH (21:54)
[2024-06-16] MEDS: MELATONIN 5 MG TABLETS PO SCH (21:54)
[2024-06-16] MEDS: ATORVASTATIN CA 40 MG TABLET (FP) PO SCH (21:54)
[2024-06-16] MEDS: CARVEDILOL 25 MG TABLET (FP) PO SCH (21:54)
[2024-06-17] MEDS: EMPAGLIFLOZIN (JARDIANCE) 10 MG TABLET PO SCH (08:34)
[2024-06-17] MEDS: ASPIRIN COATED 81 MG TABLET.EC PO SCH (09:27)
[2024-06-17] MEDS: EPLERENONE 25 MG TABLET PO SCH (09:29)
[2024-06-17] MEDS: FERROUS SO4 325 MG TABLET (FP) PO SCH (09:29)
[2024-06-17] MEDS: THIAMINE 100 MG TABLET PO SCH (09:30)
[2024-06-17] MEDS: ENOXAPARIN NA (PORCINE) 40 MG/0.4 ML DISP.SYRIN SQ SCH (09:30)
[2024-06-17] MEDS ORDERED: NIFEdipine E.R. 30 MG TABLET PO SCH (10:00)
[2024-06-17] MEDS ORDERED: amLODIPine BESYLATE 5 MG TABLET (FP) PO SCH (10:00)
[2024-06-17] MEDS ORDERED: NICOTINE 7 MG/24 HOURS TOPICAL PATCH TD ONE (10:32)
[2024-06-17] MEDS ORDERED: FUROSEMIDE 40 MG/4 ML INJECTABLE VIAL ONE (10:32)
[2024-06-17] MEDS: NICOTINE 7 MG/24 HOURS TOPICAL PATCH TD SCH (10:33)
[2024-06-17] MEDS: FUROSEMIDE 40 MG/4 ML INJECTABLE VIAL IVPUSH SCH (10:47)
[2024-06-17] MEDS: TIOTROPIUM BROMIDE 2.5 MCG (SPIRIVA) RESPIMAT INHALER IH SCH (15:42)
[2024-06-17 18:42] VITALS: BMI 28.6
[2024-06-18 08:48] LABS: HEMATOCRIT 38.4 % (35.4-49); HEMOGLOBIN 12.4 GM/dL (11.7-16.9); MCH 29.5 pg (25.7-33.7); MCHC 32.3 g/dl (32.0-35.9); MEAN CELL VOLUME 91.3 fl (80-96); MEAN PLT VOLUME 8.6 fl (7.5-11.1); PLATELET COUNT 197 10^3/uL (134-434); RDW 14.8 % (11.9-15.9); WHITE BLOOD COUNT 3.9 K/mm3 (4.0-10.0)
[2024-06-18 09:06] LABS: POTASSIUM 4.4 mmol/L (3.5-5.1)
[2024-06-18 09:09] LABS: CALCIUM 8.5 mg/dL (8.5-10.1)
[2024-06-18 09:10] LABS: BLOOD UREA NITROGEN 24.2 mg/dL (7-18); MAGNESIUM 2.1 mg/dL (1.8-2.4)
[2024-06-18 09:13] LABS: CREATININE 1.2 mg/dL (0.55-1.3); PHOSPHOROUS 3.7 mg/dL (2.5-4.9)
[2024-06-19 09:23] LABS: HEMATOCRIT 41.1 % (35.4-49); HEMOGLOBIN 13.6 GM/dL (11.7-16.9); MCH 29.9 pg (25.7-33.7); MEAN CELL VOLUME 90.7 fl (80-96); MEAN PLT VOLUME 8.7 fl (7.5-11.1); PLATELET COUNT 200 10^3/uL (134-434); RBC 4.53 M/mm3 (4.00-5.60); WHITE BLOOD COUNT 3.8 K/mm3 (4.0-10.0)
[2024-06-19 09:25] LABS: HEMATOCRIT 42.1 % (35.4-49); HEMOGLOBIN 13.7 GM/dL (11.7-16.9); MCH 29.8 pg (25.7-33.7); MCHC 32.6 g/dl (32.0-35.9); MEAN CELL VOLUME 91.5 fl (80-96); MEAN PLT VOLUME 8.7 fl (7.5-11.1); PLATELET COUNT 196 10^3/uL (134-434); RBC 4.61 M/mm3 (4.00-5.60); RDW 15.4 % (11.9-15.9); WHITE BLOOD COUNT 3.8 K/mm3 (4.0-10.0)
[2024-06-19 09:37] LABS: POTASSIUM 4.5 mmol/L (3.5-5.1)
[2024-06-19 09:48] LABS: CALCIUM 8.4 mg/dL (8.5-10.1)
[2024-06-19 09:50] LABS: BLOOD UREA NITROGEN 25.4 mg/dL (7-18)
[2024-06-19 09:52] LABS: CREATININE 1.2 mg/dL (0.55-1.3)
[2024-06-19 09:53] LABS: BILIRUBIN,TOTAL 0.4 mg/dL (0.2-1)
[2024-06-19 09:55] LABS: TOT PROT 6.7 g/dl (6.4-8.2)
[2024-06-19 11:05] LABS: ANISOCYTOSIS 0; HELMET CELLS 0; HOWELL-JOLLY BODIES 0; MACROCYTOSIS 0; OVALOCYTE 0; ROULEAU 0; SICKELED CELLS 0; TARGET CELLS 0; TEAR DROP CELLS 0; TOXIC GRANULATION 0
[2024-06-19 13:54] VITALS: RESP 18
[2024-06-20 01:18] VITALS: BP 124/89; PULSE 84; TEMP 97.2
[2024-06-20 11:22] LABS: BASO % 1.2 % (0-2.0); EOS % 4.7 % (0-4.5); HEMATOCRIT 42.8 % (35.4-49); HEMOGLOBIN 14.1 GM/dL (11.7-16.9); LYMPH % 20.4 % (8-40); MCH 29.9 pg (25.7-33.7); MCHC 32.9 g/dl (32.0-35.9); MEAN CELL VOLUME 90.9 fl (80-96); MEAN PLT VOLUME 8.4 fl (7.5-11.1); MONO % 14.4 % (3.8-10.2); NEUT % 59.3 % (42.8-82.8); PLATELET COUNT 215 10^3/uL (134-434); RDW 14.9 % (11.9-15.9); WHITE BLOOD COUNT 4.8 K/mm3 (4.0-10.0)
[2024-06-20 11:34] LABS: POTASSIUM 4.3 mmol/L (3.5-5.1)
[2024-06-20 11:37] LABS: CALCIUM 8.6 mg/dL (8.5-10.1)
[2024-06-20 11:38] LABS: BLOOD UREA NITROGEN 26.5 mg/dL (7-18)
[2024-06-20 11:40] LABS: CREATININE 1.2 mg/dL (0.55-1.3)
[2024-06-20 11:43] LABS: BILIRUBIN,TOTAL 0.4 mg/dL (0.2-1); TOT PROT 6.8 g/dl (6.4-8.2)
== END 2024-06-20 15:45 | disposition home or self-care (01) | DRG 194 ==
LOC: JER 11:31 → JERBED 16:02 → J4S 06-17 14:31
PROVIDERS: ADMIT Student in an Organized Health Care Education/Training Program
DX: I11.0 Hypertensive heart disease with heart failure (principal); I50.21 Acute systolic (congestive) heart failure; E78.00 Pure hypercholesterolemia, unspecified; J45.909 Unspecified asthma, uncomplicated; K21.9 Gastro-esophageal reflux disease without esophagitis; F32.A Depression, unspecified; F14.20 Cocaine dependence, uncomplicated; R00.0 Tachycardia, unspecified; F10.20 Alcohol dependence, uncomplicated; M54.50 Low back pain, unspecified
CPT/HCPCS: 0241U-QW; 36415; 71045-TC-FY; 80048; 80053; 82803; 83735; 83880; 84100; 84484; 85025; 85027; 85379; 85610; 85730; 93005; 93010; 93306-TC; 99285-25